=== PATIENT | male | born 1985 | race American Indian/Alaskan Native ===

== ENCOUNTER 2018-03-04 08:36 | Emergency (ER) | payer SELFPAY ==
[2018-03-04 09:02] LABS: Basophils # (Auto) 0.1 K/mm3 (0.0-0.1); Basophils % (Auto) 1.2 % (0.0-1.8); Eosinophils # (Auto) 0.2 K/mm3 (0.0-0.4); Eosinophils % (Auto) 4.1 % (0.0-4.3); Hematocrit 37.8 % (35.5-45.6); Hemoglobin 12.6 gm/dl (11.8-15.2); Lymphocytes # (Auto) 2.4 K/mm3 (1.2-5.4); Lymphocytes % (Auto) 46.8 % (13.4-35.0); Mean Corpuscular HGB Conc 33 % (32-34); Mean Corpuscular Volume 71 fl (84-94); Monocytes # (Auto) 0.7 K/mm3 (0.0-0.8); Monocytes % (Auto) 12.8 % (0.0-7.3); Platelet Count 242 K/mm3 (140-440); Red Blood Count 5.34 M/mm3 (3.65-5.03); Red Cell Distribution Width 16.4 % (13.2-15.2)
[2018-03-04 09:04] LABS: Mean Corpuscular Hemoglobin 24 pg (28-32)
[2018-03-04 09:13] LABS: Bilirubin,Urine NEG (Negative); Blood,Urine NEG (Negative); Color,Urine Amber (Yellow); Mucus,Urine 3+ /HPF
[2018-03-04 09:22] LABS: BUN/Creatinine Ratio 13; Blood Urea Nitrogen 13 mg/dL (9-20); Calcium 9.3 mg/dL (8.4-10.2); Hemolysis Index 6
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
[2018-03-04 09:37] LABS: Amphetamine Screen,Urine PRESUMPTIVE NEGATIVE; Benzodiazepines Screen,Urine PRESUMPTIVE NEGATIVE; Cannabinoid Screen,Urine PRESUMPTIVE NEGATIVE; Cocaine Screen,Urine PRESUMPTIVE NEGATIVE; Methadone Screen,Urine PRESUMPTIVE NEGATIVE; Opiate Screen,Urine PRESUMPTIVE NEGATIVE
[2018-03-04] MEDS ORDERED: ATIVAN IM PRN (11:30)
[2018-03-04] MEDS ORDERED: BENADRYL IM PRN (11:30)
[2018-03-04] MEDS ORDERED: HALDOL IM PRN (11:30)
[2018-03-05] MEDS: DILANTIN PO SCH (10:37)
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
[2018-03-05] MEDS ORDERED: DILANTIN PO SCH (22:00)
[2018-03-06] MEDS: DILANTIN PO SCH (09:59)
[2018-03-06 11:12] VITALS: BP 116/64
--- NOTE | 2018-03-06 23:56 | Progress Note ---
Subjective - Reason for Consult Consult date: 03/06/18 Reason for consult: Psychiatric Follow-up Evaluation Mental Status Exam - Vital signs Last Vital Signs Temp 98.6 F 03/06/18 10:00 Pulse 66 03/06/18 10:00 Resp 18 03/06/18 10:00 BP 116/64 03/06/18 10:00 Pulse Ox 99 03/06/18 10:00
== END 2018-03-06 21:09 ==
LOC: ED 08:36 → EEVIPCON 08:36 → ED 03-06 21:09
DX: R45.6 Violent behavior (principal); F39 Unspecified mood [affective] disorder; Z79.899 Other long term (current) drug therapy
CPT/HCPCS: 36415; 80048; 80164; 80307; 81001; 85025; 99285; G0480; 80320

== ENCOUNTER 2020-04-30 10:08 | Emergency (ER) | payer MEDICAID ==
[2020-04-30] MEDS ORDERED: levETIRAcetam 1000 MG/NS 0.75% 1,000 MG/100 ML BAG IV ONE (10:35)
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
[2020-04-30] MEDS ORDERED: levETIRAcetam 500 MG TAB PO ONE (11:19)
[2020-04-30 13:35] VITALS: BP 137/78
== END 2020-04-30 14:00 | disposition home or self-care (01) ==
LOC: ED 10:08
DX: S00.81XA Abrasion of other part of head, initial encounter (principal); S00.531A Contusion of lip, initial encounter; G40.909 Epilepsy, unspecified, not intractable, without status epilepticus; Z79.899 Other long term (current) drug therapy; W22.8XXA Striking against or struck by other objects, initial encounter; Y93.89 Activity, other specified; Y92.89 Other specified places as the place of occurrence of the external cause; Y99.8 Other external cause status
CPT/HCPCS: 82962; 99283

== ENCOUNTER 2020-05-15 14:50 | Emergency (ER) | payer MEDICAID ==
--- NOTE | 2020-05-15 15:34 | Event Note ---
ED Screening Note ED Screening Note: had a seizure at the [employer] unsure how long seizure lasted states he takes dilantin for his seizures denies any missed doses 3 days has had cold symptoms states he has been taking over the counter cold medication +dry cough no fever no n/v/d no SOB no CP no BEGUM no vision changes no numbness or weakness PMHx seizures no allergies to meds no sick contacts no recent travel This initial assessment/diagnostic orders/clinical plan/treatment(s) is/are subject to change based on patients health status, clinical progression and re- assessment by fellow clinical providers in the ED. Further treatment and workup at subsequent clinical providers discretion. Patient/guardian urged not to elope from the ED as their condition may be serious if not clinically assessed and managed. Initial orders include: labs, CXR
--- NOTE | 2020-05-15 16:30 | XRay Report ---
CHEST 2 VIEWS INDICATION / CLINICAL INFORMATION: Cough. COMPARISON: None available. FINDINGS: SUPPORT DEVICES: None. HEART / MEDIASTINUM: The heart size and pulmonary vasculature are normal. LUNGS / PLEURA: No significant pulmonary or pleural abnormality. No pneumothorax. ADDITIONAL FINDINGS: No significant additional findings. IMPRESSION: No acute findings. Signer Name: Jann Patel MD Signed: 05/15/2020 4:26 PM Workstation Name: [id number]
[2020-05-15 16:53] LABS: Basophils % (Auto) 0.6 % (0.0-1.8); Eosinophils % (Auto) 0.4 % (0.0-4.3); Hematocrit 40.7 % (35.5-45.6); Hemoglobin 13.1 gm/dl (11.8-15.2); Lymphocytes # (Auto) 2.7 K/mm3 (1.2-5.4); Lymphocytes % (Auto) 34.3 % (13.4-35.0); Mean Corpuscular HGB Conc 32 % (32-34); Mean Corpuscular Volume 72 fl (84-94); Monocytes # (Auto) 0.9 K/mm3 (0.0-0.8); Monocytes % (Auto) 12.1 % (0.0-7.3); Platelet Count 256 K/mm3 (140-440); Red Blood Count 5.68 M/mm3 (3.65-5.03); Red Cell Distribution Width 16.3 % (13.2-15.2)
[2020-05-15 17:02] LABS: Alanine Aminotransferase 33 units/L (7-56); Albumin 4.2 g/dL (3.9-5); BUN/Creatinine Ratio 13; Blood Urea Nitrogen 12 mg/dL (9-20); Calcium 9.2 mg/dL (8.4-10.2); Hemolysis Index 11
[2020-05-15] MEDS ORDERED: SODIUM CHLORIDE 0.9% 1000 ML 1,000 ML IV ONE (17:17)
[2020-05-15] MEDS ORDERED: PHENYTOIN 100 MG/2 ML VIAL IV ONE (17:17)
--- NOTE | 2020-05-15 17:18 | Emergency Department Report ---
ED Seizure HPI - General Chief Complaint: Seizure Stated Complaint: sz Time Seen by Provider: 05/15/20 16:31 Source: patient, RN notes reviewed Mode of arrival: Ambulatory Limitations: No Limitations - History of Present Illness Initial Comments: Patient is a 34-year-old male who presents emergency room with complaints of seizure activity. Patient states he was at the [place] and began having a seizure. Patient states that people at the [facility] called EMS. Patient states that he has a history of seizure but he is compliant with his medicat ions. Patient states that he thinks his seizure was because because he has been had a cold lately. Patient states sometimes when he gets sick he has a breakthrough seizure. Patient states that he has been taking NyQuil for cough and URI symptoms. Patient denies fever and chills. Patient states he has not been Covid tested. Patient states that the EMS people said that he had overdosed on NyQuil but he did not drink the NyQuil he was trying to take a sip of it because of his cold symptoms and he went into a seizure and spoke to on the floor and he spilled it onto his shoe. Patient noted to have red liquid on his white shoes. Patient denies recent travel. Patient denies recent international travel. Patient denies exposure to the novel coronavirus. Patient denies sick contacts. Patient denies fever and chills. Loss of smell. Patient denies diarrhea. Patient denies coming in contact with anybody with symptoms of the novel coronavirus. Patient states that he is compliant with his seizure medications and he needs a refill of his 200 mg twice daily Dilantin. Complaint: seizure -: Sudden Description of Episode: loss of consciousness, tonic-clonic movement Witnessed:: Yes Trauma: No Seizure History: known seizure disorder, compliant with medication Place: home Possible Precipitating Event: lack of sleep, other (URI) Associated Symptoms: cough Treatments Prior to Arrival: none - Related Data Home Medications Medication Instructions Recorded Confirmed Last Taken Phenytoin [Dilantin] 200 mg PO QAM 03/05/18 03/05/18 Unknown Previous Rx's Medication Instructions Recorded Last Taken Type Phenytoin [Dilantin] 200 mg PO BID #30 tab 05/15/20 Unknown Rx methylPREDNISolone [Medrol 4MG 4 mg PO DAILY 6 Days #1 tab.ds.pk 12/09/20 Unknown Rx DOSEPAK (21 tabs)] Allergies Allergy/AdvReac Type Severity Reaction Status Date / Time No Known Allergies Allergy Verified 05/15/20 15:17 ED Review of Systems ROS: Stated complaint: SYNCOPE/OD Other details as noted in HPI Constitutional: denies: chills, fever Eyes: denies: eye pain, eye discharge, vision change ENT: throat pain. denies: ear pain Respiratory: see HPI, cough. denies: shortness of breath, wheezing Cardiovascular: denies: chest pain, palpitations Endocrine: no symptoms reported Gastrointestinal: denies: abdominal pain, nausea, diarrhea Genitourinary: denies: urgency, dysuria Musculoskeletal: denies: back pain, joint swelling, arthralgia Skin: denies: rash, lesions Neurological: denies: headache, weakness, paresthesias Psychiatric: denies: anxiety, depression Hematological/Lymphatic: denies: easy bleeding, easy bruising ED Past Medical Hx - Past Medical History Previous Medical History?: Yes Hx Seizures: Yes Hx Psychiatric Treatment: Yes (AGGRESSIVE) Additional medical history: Pt. takes Dilantin for seizures - Surgical History Past Surgical History?: Yes - Family History Family history: no significant - Social History Smoking Status: Never Smoker Substance Use Type: None - Medications Home Medications: Home Medications Medication Instructions Recorded Confirmed Last Taken Type Phenytoin [Dilantin] 200 mg PO QAM 03/05/18 03/05/18 Unknown History Phenytoin [Dilantin] 200 mg PO BID #30 tab 05/15/20 Unknown Rx methylPREDNISolone [Medrol 4MG 4 mg PO DAILY 6 Days #1 tab.ds.pk 05/15/20 Unknown Rx DOSEPAK (21 tabs)] ED Physical Exam - General Limitations: No Limitations General appearance: alert, in no apparent distress - Head Head exam: Present: atraumatic, normocephalic - Eye Eye exam: Present: normal appearance - ENT ENT exam: Present: mucous membranes dry, other (Oropharynx redness noted. No exudate noted.) - Neck Neck exam: Present: normal inspection - Respiratory Respiratory exam: Present: normal lung sounds bilaterally. Absent: respiratory distress, wheezes, rales - Cardiovascular Cardiovascular Exam: Present: regular rate, normal rhythm. Absent: systolic murmur, diastolic murmur, rubs, gallop - GI/Abdominal GI/Abdominal exam: Present: soft, normal bowel sounds. Absent: distended, tenderness, guarding - Rectal Rectal exam: Present: deferred - Extremities Exam Extremities exam: Present: normal inspection - Back Exam Back exam: Present: normal inspection - Neurological Exam Neurological exam: Present: alert, oriented X3 - Psychiatric Psychiatric exam: Present: normal affect, normal mood - Skin Skin exam: Present: warm, dry, intact, normal color. Absent: rash ED Course Vital Signs 05/15/20 05/15/20 05/15/20 15:20 16:55 17:00 Temperature 99.2 F Pulse Rate 100 H 88 Respiratory 20 18 17 Rate Blood Pressure 119/77 126/81 O2 Sat by Pulse 97 100 95 Oximetry 05/15/20 05/15/20 05/15/20 17:15 17:31 17:45 Temperature Pulse Rate 98 H 99 H 84 Respiratory 19 17 18 Rate Blood Pressure 126/81 126/81 126/81 O2 Sat by Pulse 97 98 97 Oximetry 05/15/20 05/15/20 05/15/20 18:00 18:15 18:31 Temperature Pulse Rate 106 H 117 H 98 H Respiratory 19 15 16 Rate Blood Pressure 131/89 131/89 126/81 O2 Sat by Pulse 95 98 98 Oximetry 05/15/20 05/15/20 05/15/20 18:45 19:00 20:00 Temperature Pulse Rate 94 H 92 H 91 H Respiratory 21 20 21 Rate Blood Pressure 126/81 142/85 142/85 O2 Sat by Pulse 95 89 96 Oximetry 05/15/20 05/15/20 21:00 22:00 Temperature Pulse Rate 85 86 Respiratory 18 18 Rate Blood Pressure 128/86 131/68 O2 Sat by Pulse 92 95 Oximetry - Reevaluation(s) Reevaluation #1: Patient evaluation done. Patient states he does not feel any more seizures coming on. 05/15/20 16:31 Reevaluation #2: Patient has not had any further seizures in the ER. Patient states he is feeling much better after fluids. 05/15/20 19:41 Reevaluation #3: Patient states he is feeling much better. Patient states he has not had any seizure activity. I discussed all results and clinical findings with patient. I discussed plan of care with patient. Patient agrees with plan of care. Patient is stable for discharge. Patient will be discharged home. Patient given discharge instructions. Patient voiced understanding of discharge instructions. 05/15/20 21:41 ED Medical Decision Making - Lab Data Result diagrams: 05/15/20 16:29 05/15/20 16:29 - Radiology Data Radiology results: report reviewed CHEST 2 VIEWS INDICATION / CLINICAL INFORMATION: Cough. COMPARISON: None available. FINDINGS: SUPPORT DEVICES: None. HEART / MEDIASTINUM: The heart size and pulmonary vasculature are normal. LUNGS / PLEURA: No significant pulmonary or pleural abnormality. No pneumothorax. ADDITIONAL FINDINGS: No significant additional findings. IMPRESSION: No acute findings. - Medical Decision Making Patient is a 34-year-old male that presents emergency room for a seizure and patient also complained of a recent upper respiratory infection. Patient states that the seizure happened while he was taking NyQuil while sitting in a [employer]. Patient states that EMS spoke with him of overdosing on NyQuil but he did not he was taking the recommended amount and does happen have a seizure while he was drinking and then it spilled on his shoes. Patient given Dilantin IV while in the ER. Patient had no further seizure activity. Patient seizure activity most likely to the stress of having upper respiratory infection. Kenny nt had labs done which were essentially unremarkable. Patient had a chest x-ray which was negative. Patient had a CT of the head which showed no acute findings. Patient depressed or infectious most likely a Covid infection and patient will need further testing at the health department. Patient stable for discharge. Patient discharged home. Patient given discharge instructions. - Differential Diagnosis Seizure, URI, Covid, stress reaction Critical care attestation.: If time is entered above; I have spent that time in minutes in the direct care of this critically ill patient, excluding procedure time. ED Disposition Clinical Impression: Cough, Seizure, Person under investigation for COVID-19 URI (upper respiratory infection) Qualifiers: URI type: unspecified URI Qualified Code(s): J06.9 - Acute upper respiratory infection, unspecified Disposition: DC-01 TO HOME OR SELFCARE Is pt being admited?: No Does the pt Need Aspirin: No Condition: Stable Instructions: COVID-19: How to Protect Yourself and Others - CDC, Cough, Adult, COVID-19, Seizure, Adult, [id number], Viral Respiratory Infection, Prevent the Spread of COVID-19 if You Are Sick - CDC Additional Instructions: Patient to follow-up with primary care in 2 to 3 days. Patient to follow-up with neurologist and health department in 2 to 3 days. Patient to follow-up at a local Covid testing site for COVID-19 testing. Patient to self quarantine for 10 to 14 days. Patient to rest. Patient to increase water. Patient to avoid strenuous exercise or heavy lifting until cleared by neurologist and primary care. Patient to take Tylenol as needed for pain. Patient to take meds as directed. Patient to return to the ER if condition worsens, changes or new symptoms arise. Prescriptions: Phenytoin [Dilantin] 200 mg PO BID #30 tab methylPREDNISolone [Medrol 4MG DOSEPAK (21 tabs)] 4 mg PO DAILY 6 Days #1 tab.ds.pk Referrals: PRIMARY CARE, [Primary Care Provider] - 2-3 Days Time of Disposition: 22:15
--- NOTE | 2020-05-15 18:12 | Cat Scan Report ---
CT head/brain wo con INDICATION / CLINICAL INFORMATION: 34 years Male; sz. TECHNIQUE: Routine CT head without contrast. All CT scans at this location are performed using CT dos e reduction for ALARA by means of automated exposure control. COMPARISON: None. FINDINGS: BRAIN / INTRACRANIAL CONTENTS: Asymmetric right cerebral hemisphere atrophy seen, as well as cerebell ar atrophy. 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 Cerebell ar atrophy may be related to chronic antiseizure medication, and clinical correlation is recommended. Otherwise, no acute hemorrhage, mass effect, midline shift, hydrocephalus, or acute, large territori al infarct. No signs of significant atrophy or chronic infarct. No significant white matter abnormali ty seen. CRANIOCERVICAL JUNCTION: No significant abnormality. ORBITS: No significant abnormality of visualized orbits. SINUSES / MASTOIDS: No significant abnormality in the visualized paranasal sinuses or mastoid air philip ls. ADDITIONAL FINDINGS: None. IMPRESSION: 1. No focal mass, hemorrhage, hydrocephalus, or acute, large territorial infarct. Signer Name: Tyler Woods MD, III Signed: 05/15/2020 6:07 PM Workstation Name: [id number]
[2020-05-15 22:05] VITALS: BP 131/68
== END 2020-05-15 22:29 | disposition home or self-care (01) ==
LOC: ED 14:50
DX: G40.909 Epilepsy, unspecified, not intractable, without status epilepticus (principal); J06.9 Acute upper respiratory infection, unspecified; Z01.84 Encounter for antibody response examination; Z79.899 Other long term (current) drug therapy
CPT/HCPCS: 36415; 70450; 71046; 80053; 85025; 96374; 99285; J1165; J7030

== ENCOUNTER 2020-07-23 09:15 | Emergency (ER) | payer MEDICAID ==
--- NOTE | 2020-07-23 09:22 | Emergency Department Report ---
Blank Doc - Documentation Documentation: 34-year-old male that presents with dizziness, unsteady balance and right knee pain. Patient stated that this been going on for 15 days and had a fall to her right knee. Patient stated has history of seizures and does take his medication as prescribed. Patient denies any loss of consciousness. Denies any facial drooping or one- sided weakness. Exam: Neuro exam unremarkable. No facial drooping. No one-sided weakness. Tachycardia in triage. 1- This initial assessment/diagnostic orders/clinical plan/ treatment(s) is/are subject to change based on pt's health status, clinical progression and re- assessment by fellow clinical providers in the ED. Further treatment and workup at subsequent clinical provers discretion. Patient/guardians urged not to elope from ED as their condition may be serious if not clinically assessed and managed. 2-labs 3-EKG 4-x-ray
[2020-07-23 10:01] LABS: Basophils # (Auto) 0.1 K/mm3 (0.0-0.1); Basophils % (Auto) 0.8 % (0.0-1.8); Eosinophils # (Auto) 0.2 K/mm3 (0.0-0.4); Eosinophils % (Auto) 3.6 % (0.0-4.3); Hematocrit 39.1 % (35.5-45.6); Hemoglobin 12.8 gm/dl (11.8-15.2); Lymphocytes # (Auto) 2.4 K/mm3 (1.2-5.4); Lymphocytes % (Auto) 35.7 % (13.4-35.0); Mean Corpuscular HGB Conc 33 % (32-34); Mean Corpuscular Volume 71 fl (84-94); Monocytes # (Auto) 0.7 K/mm3 (0.0-0.8); Monocytes % (Auto) 10.1 % (0.0-7.3); Platelet Count 307 K/mm3 (140-440); Red Blood Count 5.49 M/mm3 (3.65-5.03); Red Cell Distribution Width 15.5 % (13.2-15.2)
[2020-07-23 10:10] LABS: INR 1.05 (0.87-1.13)
[2020-07-23 10:11] LABS: Partial Thromboplastin Time 32.3 Sec. (24.2-36.6)
[2020-07-23] MEDS ORDERED: LACTATED RINGERS 1,000 ML IV ONE ×2 (10:24→10:26)
--- NOTE | 2020-07-23 10:27 | Emergency Department Report ---
ED General Adult HPI - General Chief complaint: Fall Stated complaint: LEG PAIN PUI?: No Time Seen by Provider: 07/23/20 09:20 Source: patient, EMS ( EMS documentation not available at time of chart dictation ), RN notes reviewed, old records reviewed Mode of arrival: Wheelchair Limitations: No Limitations - History of Present Illness Initial comments: The patient was evaluated in the emergency department for symptoms described in the history of present illness. He/she was evaluated in the context of the global COVID-19 pandemic, which necessitated consideration that the patient might be at risk for infection with the virus that causes COVID-19. Institutional protocols and algorithms that pertain to the evaluation of p atients at risk for COVID-19 are in a state of rapid change based on information released by regulatory bodies including the CDC and federal and state organizations. These policies and algorithms were followed during the patient's care in the emergency department. Please note that these policies, procedures and recommendations changed on a rapid basis. Past medical history: Seizure, takes Dilantin, unspecified psychiatric disorder This is a 34-year-old gentleman. He is not known to myself previously. The patient presents to the ER today with a complaint of right knee pain. Patient states that he was running this morning to get the bus, and believes that he fell and landed on his knee. However, he is not certain. To me, before falling, he states that he is not having any physical pain, or any symptoms. He specifically denied complaints of headache, neck pain, chest pain, abdominal pain, shortness of breath, dizziness. He reports no fever, no vomiting, no hematemesis of bright red blood per rectum, he also reports that his had loss of taste and smell for 2 months. He specifically denies overdose, homicidality, suicidality, hallucinations, access to guns and to firearms. He is asking to eat and drink. The patient cannot specifically recall how he fell, except as otherwise mentioned. The patient only complains of right knee pain. The pain does not radiate anywhere. He does not describe exacerbating, or relieving factors. He states that after he fell, "a man took me here in a wheelchair." -: Sudden, This morning Location: right, lower extremity Radiation: other Quality: other Consistency: other Improves with: other Worsens with: other Associated Symptoms: other - Related Data Home Medications Medication Instructions Recorded Confirmed Last Taken Phenytoin [Dilantin] 200 mg PO QAM 18 03/05/18 Unknown Previous Rx's Medication Instructions Recorded Last Taken Type Phenytoin [Dilantin] 200 mg PO BID #30 tab 05/15/20 Unknown Rx methylPREDNISolone [Medrol 4MG 4 mg PO DAILY 6 Days #1 tab.ds.pk 05/15/20 Unknown Rx DOSEPAK (21 tabs)] Allergies Allergy/AdvReac Type Severity Reaction Status Date / Time No Known Allergies Allergy Verified 05/15/20 15:17 ED Review of Systems ROS: Stated complaint: LEG PAIN Other details as noted in HPI Constitutional: denies: fever Eyes: denies: eye discharge, vision change ENT: denies: epistaxis Respiratory: denies: cough Cardiovascular: denies: chest pain, syncope Gastrointestinal: denies: abdominal pain Genitourinary: denies: urgency, dysuria Musculoskeletal: arthralgia, myalgia Neurological: denies: headache Psychiatric: denies: auditory hallucinations, visual hallucinations, homicidal thoughts, suicidal thoughts ED Past Medical Hx - Past Medical History Previous Medical History?: Yes Hx Seizures: Yes Hx Psychiatric Treatment: Yes (AGGRESSIVE) Additional medical history: Pt. takes Dilantin for seizures - Surgical History Past Surgical History?: No - Social History Smoking Status: Never Smoker Substance Use Type: None - Medications Home Medications: Home Medications Medication Instructions Recorded Confirmed Last Taken Type Phenytoin [Dilantin] 200 mg PO QAM 18 03/05/18 Unknown History Phenytoin [Dilantin] 200 mg PO BID #30 tab 05/15/20 Unknown Rx methylPREDNISolone [Medrol 4MG 4 mg PO DAILY 6 Days #1 tab.ds.pk 05/15/20 Unknown Rx DOSEPAK (21 tabs)] ED Physical Exam - General Limitations: No Limitations General appearance: alert, in no apparent distress - Head Head exam: Present: atraumatic, normocephalic - Eye Eye exam: Present: normal appearance, PERRL, EOMI, other (Visual acuity intact to finger counting, color perception, reading at a close distance). Absent: nystagmus - ENT ENT exam: Present: normal exam, normal orophraynx, mucous membranes moist, normal external ear exam - Neck Neck exam: Present: normal inspection, full ROM. Absent: tenderness, meningismus - Respiratory Respiratory exam: Present: normal lung sounds bilaterally. Absent: respiratory distress, wheezes, rales, rhonchi, stridor, decreased breath sounds - Cardiovascular Cardiovascular Exam: Present: regular rate, normal rhythm, normal heart sounds. Absent: bradycardia, tachycardia, irregular rhythm, systolic murmur, diastolic murmur, rubs, gallop - GI/Abdominal GI/Abdominal exam: Present: soft. Absent: distended, tenderness, guarding, rebound, rigid, pulsatile mass - Rectal Rectal exam: Present: deferred - Extremities Exam Extremities exam: Present: normal inspection (When distracted, there is no lower extremity tenderness. Able to internally and externally rotate the hip, flex and extend the knee, and bilateral ankles), full ROM, other (2+ pulses noted in the bilateral upper and lower extremities. There is no palpable cord. negative Homans sign. Muscular compartments are soft. The pelvis is stable.). Absent: pedal edema, calf tenderness - Back Exam Back exam: Present: normal inspection, full ROM. Absent: tenderness, CVA tenderness (R), CVA tenderness (L), paraspinal tenderness, vertebral tenderness - Neurological Exam Neurological exam: Present: alert, oriented X3, other (No facial droop. Tongue midline. Extraocular movements intact bilaterally. Facial sensation intact to light touch in V1, V2, V3 distribution bilaterally. 5 and a 5 strength in 4 extremities. Sensation intact to light touch in 4 extremities.). Absent: motor sensory deficit - Psychiatric Psychiatric exam: Absent: manic, homicidal ideation, suicidal ideation - Skin Skin exam: Present: warm, dry, intact, normal color. Absent: rash ED Course Vital Signs 07/23/20 07/23/20 07/23/20 09:16 10:24 10:39 Temperature 99.1 F Pulse Rate 120 H 107 H Respiratory 18 16 16 Rate Blood Pressure 86/66 Blood Pressure 177/99 [Right] O2 Sat by Pulse 100 99 100 Oximetry 07/23/20 12:24 Temperature Pulse Rate 97 H Respiratory 16 Rate Blood Pressure Blood Pressure 150/99 [Right] O2 Sat by Pulse 99 Oximetry - Reevaluation(s) Reevaluation #1: 07/23/20 10:46 Differential diagnosis, including but not limited to: Mechanical fall, knee injury, closed head injury, history of seizure, chronic psychiatric disease, general medical exam Assessment and plan: 34-year-old gentleman, with low-grade temperature, but denies acute Covid symptomatology, denies urinary symptoms, initially tachycardic, heart rate now 98 bpm, blood pressure initially in the 80s, now 140 systolic, with a GCS of 15, nonfocal motor examination, who is bizarre, but cooperative, not homicidal, not suicidal, who exhibits decision-making capacity, and is free from distracting injury, with a primary complaint of fall, and right knee pain. Tachycardia resolved. Blood pressure improved. Patient refused/declined x-ray of the chest, patient exhibits decision-making capacity at this time. Do not suspect pneumonia at this time, given lack of focal pulmonary findings, and lack of hypoxia. Screening laboratory studies ordered, results are pending. Noncontrast CT scan of the brain was ordered prior to my personal evaluation, results are pending. We will feed the patient, give IV fluids, await remainder of laboratory studies, and reassess. Reevaluation #2: 07/23/20 12:41 Tachycardia resolved. Patient states that he took 300 mg of phenytoin last night, as he supposed to, and 200 mg of phenytoin this morning, at around 730, as he is typically prescribed. Repeat laboratory studies are pending at this time. Reevaluation #3: 07/23/20 14:41 Patient resting comfortably at this time, and in no acute distress. Repeat laboratory studies unremarkable. Patient still has supratherapeutic phenytoin level. Have repeated consultation with [facility], and Reva, have asked for recommendations from their medical circulation tender, regarding persistently elevated phenytoin level. Awaiting callback from [facility] at this time. Reevaluation #4: 07/23/20 15:19 Patient found to have persistently elevated supratherapeutic phenytoin level. Have recontacted [facility], this case was discussed with their circulation tender, Dr. David Dugan Admission is recommended, in addition to serial, every 4 hour phenytoin level, supportive care, as well as activated charcoal with sorbitol. Have discussed this with the patient. The patient does not want to be admitted. He is not interested in charcoal. He states he would like to leave. He is going to sign out against medical Advice. The patient is currently alert, oriented, sober, exhibits decision-fantasma ing capacity, free from distracting injury, and exhibits decision-making capacity. He is able to articulate risks of leaving AMA in his own words. This is witnessed by nurse Tesha Kumar Understands that he may return to the emergency room right away if and when he changes his mind. - Consultations Consultation #1: 07/23/20 11:51 Patient found to have supratherapeutic phenytoin level. Contacted [facility]. Because of delays in our laboratory facility, I do not have comprehensive metabolic panel back, nor do I have salicylate level back. However, the patient is awake, alert, oriented, without nystagmus, not encephalopathic. Supportive care is recommended at this time. It is also recommended to repeat laboratory studies at our for from initial medical contact, and demonstrated persistently downtrending phenytoin level. Additional laboratory studies ordered for 4-hour timeframe. ED Medical Decision Making - Lab Data Result diagrams: 07/23/20 09:31 07/23/20 12:19 Vital Signs 07/23/20 07/23/20 09:16 10:39 Temperature 99.1 F Pulse Rate 120 H Respiratory 18 16 Rate Blood Pressure 86/66 O2 Sat by Pulse 100 100 Oximetry Lab Results 07/23/20 07/23/20 Range/Units 09:31 09:31 WBC 6.6 (4.5-11.0) K/mm3 RBC 5.49 H (3.65-5.03) M/mm3 Hgb 12.8 (11.8-15.2) gm/dl Hct 39.1 (35.5-45.6) % MCV 71 L (84-94) fl MCH 23 L (28-32) pg MCHC 33 (32-34) % RDW 15.5 H (13.2-15.2) % Plt Count 307 (140-440) K/mm3 Lymph % (Auto) 35.7 H (13.4-35.0) % [place] % (Auto) 10.1 H (0.0-7.3) % Eos % (Auto) 3.6 (0.0-4.3) % Baso % (Auto) 0.8 (0.0-1.8) % Lymph # (Auto) 2.4 (1.2-5.4) K/mm3 [place] # (Auto) 0.7 (0.0-0.8) K/mm3 Eos # (Auto) 0.2 (0.0-0.4) K/mm3 Baso # (Auto) 0.1 (0.0-0.1) K/mm3 Seg Neutrophils % 49.8 (40.0-70.0) % Seg Neutrophils # 3.3 (1.8-7.7) K/mm3 PT 13.5 (12.2-14.9) Sec. INR 1.05 (0.87-1.13) APTT 32.3 (24.2-36.6) Sec. Lab Results 07/23/20 07/23/20 07/23/20 Range/Units 09:31 09:31 09:31 WBC 6.6 (4.5-11.0) K/mm3 RBC 5.49 H (3.65-5.03) M/mm3 Hgb 12.8 (11.8-15.2) gm/dl Hct 39.1 (35.5-45.6) % MCV 71 L (84-94) fl MCH 23 L (28-32) pg MCHC 33 (32-34) % RDW 15.5 H (13.2-15.2) % Plt Count 307 (140-440) K/mm3 Lymph % (Auto) 35.7 H (13.4-35.0) % [place] % (Auto) 10.1 H (0.0-7.3) % Eos % (Auto) 3.6 (0.0-4.3) % Baso % (Auto) 0.8 (0.0-1.8) % Lymph # (Auto) 2.4 (1.2-5.4) K/mm3 [place] # (Auto) 0.7 (0.0-0.8) K/mm3 Eos # (Auto) 0.2 (0.0-0.4) K/mm3 Baso # (Auto) 0.1 (0.0-0.1) K/mm3 Seg Neutrophils % 49.8 (40.0-70.0) % Seg Neutrophils # 3.3 (1.8-7.7) K/mm3 PT 13.5 (12.2-14.9) Sec. INR 1.05 (0.87-1.13) APTT 32.3 (24.2-36.6) Sec. Sodium 139 (137-145) mmol/L Potassium 4.1 (3.6-5.0) mmol/L Chloride 102.5 (98-107) mmol/L Carbon Dioxide 25 (22-30) mmol/L Anion Gap 16 mmol/L BUN 10 (9-20) mg/dL Creatinine 1.0 (0.8-1.3) mg/dL Estimated GFR > 60 ml/min BUN/Creatinine Ratio 10 % Glucose 142 H (75-100) mg/dL Calcium 9.4 (8.4-10.2) mg/dL Magnesium (1.7-2.3) mg/dL Total Bilirubin 0.30 (0.1-1.2) mg/dL AST 23 (5-40) units/L ALT 19 (7-56) units/L Alkaline Phosphatase 63 (35-129) units/L Total Creatine Kinase (55-170) units/L Total Protein 8.0 (6.3-8.2) g/dL Albumin 4.8 (3.9-5) g/dL Albumin/Globulin Ratio 1.5 % Salicylates (2.8-20.0) mg/dL Acetaminophen (10.0-30.0) ug/mL Phenytoin (10.0-20.0) ug/mL Plasma/Serum Alcohol (0-0.07) % 07/23/20 07/23/20 07/23/20 Range/Units 09:31 09:31 09:31 WBC (4.5-11.0) K/mm3 RBC (3.65-5.03) M/mm3 Hgb (11.8-15.2) gm/dl Hct (35.5-45.6) % MCV (84-94) fl MCH (28-32) pg MCHC (32-34) % RDW (13.2-15.2) % Plt Count (140-440) K/mm3 Lymph % (Auto) (13.4-35.0) % [place] % (Auto) (0.0-7.3) % Eos % (Auto) (0.0-4.3) % Baso % (Auto) (0.0-1.8) % Lymph # (Auto) (1.2-5.4) K/mm3 [place] # (Auto) (0.0-0.8) K/mm3 Eos # (Auto) (0.0-0.4) K/mm3 Baso # (Auto) (0.0-0.1) K/mm3 Seg Neutrophils % (40.0-70.0) % Seg Neutrophils # (1.8-7.7) K/mm3 PT (12.2-14.9) Sec. INR (0.87-1.13) APTT (24.2-36.6) Sec. Sodium (137-145) mmol/L Potassium (3.6-5.0) mmol/L Chloride (98-107) mmol/L Carbon Dioxide (22-30) mmol/L Anion Gap mmol/L BUN (9-20) mg/dL Creatinine (0.8-1.3) mg/dL Estimated GFR ml/min BUN/Creatinine Ratio % Glucose (75-100) mg/dL Calcium (8.4-10.2) mg/dL Magnesium 1.70 (1.7-2.3) mg/dL Total Bilirubin (0.1-1.2) mg/dL AST (5-40) units/L ALT (7-56) units/L Alkaline Phosphatase (35-129) units/L Total Creatine Kinase 123 (55-170) units/L Total Protein (6.3-8.2) g/dL Albumin (3.9-5) g/dL Albumin/Globulin Ratio % Salicylates < 0.3 L (2.8-20.0) mg/dL Acetaminophen (10.0-30.0) ug/mL Phenytoin 64.7 H* (10.0-20.0) ug/mL Plasma/Serum Alcohol < 0.01 (0-0.07) % 07/23/20 Range/Units 09:31 WBC (4.5-11.0) K/mm3 RBC (3.65-5.03) M/mm3 Hgb (11.8-15.2) gm/dl Hct (35.5-45.6) % MCV (84-94) fl MCH (28-32) pg MCHC (32-34) % RDW (13.2-15.2) % Plt Count (140-440) K/mm3 Lymph % (Auto) (13.4-35.0) % [place] % (Auto) (0.0-7.3) % Eos % (Auto) (0.0-4.3) % Baso % (Auto) (0.0-1.8) % Lymph # (Auto) (1.2-5.4) K/mm3 [place] # (Auto) (0.0-0.8) K/mm3 Eos # (Auto) (0.0-0.4) K/mm3 Baso # (Auto) (0.0-0.1) K/mm3 Seg Neutrophils % (40.0-70.0) % Seg Neutrophils # (1.8-7.7) K/mm3 PT (12.2-14.9) Sec. INR (0.87-1.13) APTT (24.2-36.6) Sec. Sodium (137-145) mmol/L Potassium (3.6-5.0) mmol/L Chloride (98-107) mmol/L Carbon Dioxide (22-30) mmol/L Anion Gap mmol/L BUN (9-20) mg/dL Creatinine (0.8-1.3) mg/dL Estimated GFR ml/min BUN/Creatinine Ratio % Glucose (75-100) mg/dL Calcium (8.4-10.2) mg/dL Magnesium (1.7-2.3) mg/dL Total Bilirubin (0.1-1.2) mg/dL AST (5-40) units/L ALT (7-56) units/L Alkaline Phosphatase (35-129) units/L Total Creatine Kinase (55-170) units/L Total Protein (6.3-8.2) g/dL Albumin (3.9-5) g/dL Albumin/Globulin Ratio % Salicylates (2.8-20.0) mg/dL Acetaminophen 5.0 L (10.0-30.0) ug/mL Phenytoin (10.0-20.0) ug/mL Plasma/Serum Alcohol (0-0.07) % Vital Signs 07/23/20 07/23/20 07/23/20 09:16 10:24 10:39 Temperature 99.1 F Pulse Rate 120 H 107 H Respiratory 18 16 16 Rate Blood Pressure 86/66 Blood Pressure 177/99 [Right] O2 Sat by Pulse 100 99 100 Oximetry 07/23/20 12:24 Temperature Pulse Rate 97 H Respiratory 16 Rate Blood Pressure Blood Pressure 150/99 [Right] O2 Sat by Pulse 99 Oximetry - EKG Data -: EKG Interpreted by Me EKG shows normal: sinus rhythm Rate: tachycardia - EKG Data When compared to previous EKG there are: previous EKG unavailable 07/23/20 10:46 Sinus rhythm, tachycardia, 108 bpm. Normal axis, high left ventricular voltage, QTC is prolonged. Early repolarization. Not a STEMI. No prior for comparison. - Radiology Data Radiology results: pending, report reviewed, image reviewed RIGHT KNEE 3 VIEW(S) INDICATION / CLINICAL INFORMATION: fall with pain COMPARISON: None available. FINDINGS: BONES / JOINT(S): No acute fracture or subluxation. No significant arthritis. No significant joint effusion. SOFT TISSUES: No significant abnormality. ADDITIONAL FINDINGS: None. IMPRESSION: No acute osseous findings in the right knee. Signer Name: Franklin Stevens MD Signed: 07/23/2020 9:08 AM Critical care attestation.: If time is entered above; I have spent that time in minutes in the direct care of this critically ill patient, excluding procedure time. ED Disposition Clinical Impression: Elevated Dilantin level, Right leg pain Fall Qualifiers: Encounter type: initial encounter Qualified Code(s): W19.XXXA - Unspecified fall, initial encounter Disposition: DC-07 LEFT AGAINST MED ADVICE Is pt being admited?: No Does the pt Need Aspirin: No Condition: Undetermined Additional Instructions: As we discussed, you have left the hospital/emergency room AGAINST MEDICAL ADVICE. By leaving, you risked , disability, paralysis, permanent loss of quality of life. The ER is open 24 hours a day, 7 days a week. It never closes. Please return to the emergency room right away if and when you change your mind. If you decide not to return to the emergency room, please follow-up with the listed physician referrals as soon as possible. Please do not take phenytoin, until cleared to do so by a primary care doctor or neurologist. Follow-up as soon as possible. Return to the emergency room if and when patient changes his mind. Referrals: HARVINDER GANT MD [Referring] - 3-5 Days MIKAYLA CARDENAS MD [Staff Physician] - 3-5 Days DIONNE REAVES MD [Staff Physician] - 3-5 Days
--- NOTE | 2020-07-23 11:47 | XRay Report ---
RIGHT KNEE 3 VIEW(S) INDICATION / CLINICAL INFORMATION: fall with pain COMPARISON: None available. FINDINGS: BONES / JOINT(S): No acute fracture or subluxation. No significant arthritis. No significant joint ef fusion. SOFT TISSUES: No significant abnormality. ADDITIONAL FINDINGS: None. IMPRESSION: No acute osseous findings in the right knee. Signer Name: Franklin Stevens MD Signed: 07/23/2020 10:08 AM Workstation Name: [id number]
--- NOTE | 2020-07-23 11:48 | Cat Scan Report ---
CT HEAD WITHOUT CONTRAST INDICATION : Lightheadedness/Dizziness. TECHNIQUE: Axial imaging performed from the skull apex through the skull base without the use of con trast. Sagittal and coronal reformatted images. All CT scans at this location are performed using C T dose reduction for ALARA by means of automated exposure control. COMPARISON: 05/15/2020 FINDINGS: Parenchyma: No acute intracranial hemorrhage or parenchymal abnormality. Right cerebral hemisphere a trophy and cerebellar atrophy are again noted and unchanged. The left cerebral hemisphere remains wit hin normal limits. No extra-axial fluid collection has developed. Ventricles: Ventricles are normal in size and appear symmetric. Bones: No acute osseous abnormality. Sinuses: Sinuses and mastoid air cells are clear. Soft tissues: Soft tissues including the orbits appear normal. IMPRESSION: No acute abnormality. Chronic findings as described which are unchanged since 05/15/2020. Signer Name: Guilherme Baker Jr, MD Signed: 07/23/2020 11:29 AM Workstation Name: [id number]
[2020-07-23 12:37] LABS: Alanine Aminotransferase 19 units/L (7-56); Albumin 4.8 g/dL (3.9-5); BUN/Creatinine Ratio 10; Blood Urea Nitrogen 10 mg/dL (9-20); Calcium 9.4 mg/dL (8.4-10.2)
[2020-07-23 12:38] LABS: Hemolysis Index 0
[2020-07-23 13:11] LABS: Alanine Aminotransferase 18 units/L (7-56); Albumin 4.6 g/dL (3.9-5); BUN/Creatinine Ratio 10; Blood Urea Nitrogen 9 mg/dL (9-20); Calcium 8.9 mg/dL (8.4-10.2); Hemolysis Index 0
[2020-07-23] MEDS ORDERED: KETOROLAC 30 MG/1 ML INJ IV ONE (15:18)
[2020-07-23 15:34] VITALS: BP 159/99
== END 2020-07-23 15:30 | disposition left against medical advice (07) ==
LOC: ED 09:15
DX: M25.561 Pain in right knee (principal); R89.2 Abnormal level of other drugs, medicaments and biological substances in specimens from other organs, systems and tissues; R56.9 Unspecified convulsions; Z79.899 Other long term (current) drug therapy; W19.XXXA Unspecified fall, initial encounter; Y93.89 Activity, other specified; Y92.89 Other specified places as the place of occurrence of the external cause; Y99.8 Other external cause status
CPT/HCPCS: 36415; 70450; 73562; 80053; 80185; 82140; 82550; 83735; 85025; 85610; 85730; 87040; 93005; 96361; 96374; 99285; J1885; J7120; 80320; G0480